=== PATIENT | male | born 1995 | race African-American/Black ===

== ENCOUNTER 2019-03-01 15:42 | Emergency (ER) | payer OTHER ==
[2019-03-01 15:50] VITALS: BP 137/77
--- NOTE | 2019-03-01 17:04 | ED Physician Documentation ---
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 He was wrestling 2 days ago when he was thrown onto his left side while he continued holding onto his wrestling partner, and injured his left clavicle. [facility] and was diagnosed with left clavicle fracture, and was [facility] [place] when he returned home. He is right-hand dominant. He denies any other injuries. He denies numbness or weakness. Review of Systems Constitutional: denies: Fever Throat: denies: Sore throat Cardiac: denies: Chest pain / pressure Respiratory: denies: Dyspnea, Cough GI: denies: Abdominal Pain, Nausea, Vomiting Skin: denies: Rash, Abrasion (s) Musculoskeletal: reports: Extremity pain (Left clavicular region.). denies: Neck pain, Back pain Neurologic: denies: Focal weakness, Numbness, Headache PD PAST MEDICAL HISTORY - Past Medical History Past Medical History: No Respiratory: None Endocrine/Autoimmune: None - Allergies Allergies/Adverse Reactions: Allergies Allergy/AdvReac Type Severity Reaction Status Date / Time No Known Drug Allergies Allergy Verified 03/01/19 15:45 - Social History Does the pt smoke?: No Smoking Status: Never smoker PD ED PE NORMAL - Vitals Vital signs reviewed: Yes (Normal) - General General: Alert and oriented X 3, Well developed/nourished - HEENT HEENT: Atraumatic - Neck Neck: No bony TTP - Cardiac Cardiac: RRR - Respiratory Respiratory: No respiratory distress, Clear bilaterally - Abdomen Abdomen: Soft, Non tender - Back Back: No spinal TTP - Derm Derm: No rash - Extremities Extremities: Other (There is tenting of the skin overlying the midportion of the left clavicle, with associated tenderness to palpation.) - Neuro Neuro: Alert and oriented X 3, No motor deficit, No sensory deficit Results - Rads (name of study) left clavicle Radiology: Prelim report reviewed, EMP read contemporaneously, See rad report (Completely displaced, comminuted midshaft left clavicle fracture.) PD MEDICAL DECISION MAKING - ED course Complexity details: reviewed results, considered differential, d/w patient, d/w webmethods consultant ED course: The patient's presentation is significant for a displaced comminuted midshaft left clavicle fracture, as seen on x-ray. No other injuries are detected. Because of the nature of the fracture I discussed his condition with Dr. Olivo, who is on-call for orthopedic surgery. He advises shoulder immobilization and outpatient follow-up. The patient's shoulder immobilizer was reapplied. I discussed with him the expected course of injury, the importance of orthopedic follow-up, as well as potentially worrisome signs or symptoms that should prompt reevaluation in the emergency department. Departure - Departure Disposition: 01 Home, Self Care Clinical Impression: Closed left clavicular fracture Qualifiers: Encounter type: initial encounter Clavicle location: shaft Fracture alignment: displaced Qualified Code(s): S42.022A - Displaced fracture of shaft of left clavicle, initial encounter for closed fracture Condition: Stable Instructions: ED Fx Clavicle Follow-Up: LENNIE Alston [Provider Group] Comments: Keep the shoulder immobilizer in place except when showering. You can use ibuprofen, up to 800 mg 3 times daily. Follow-up with orthopedic clinic within 1 week if possible. Call to schedule appointment. Return to the emergency department if you develop breakthrough of the bone through the skin, or otherwise worsening symptoms. Discharge Date/Time: 03/01/19 17:34
--- NOTE | 2019-03-01 17:07 | XRAY Report ---
Reason: left clavicle injury Procedure Date: 03/01/2019 Accession Number: [id number] / [id number] Procedure: XR - Clavicle LT CPT Code: FULL RESULT: EXAM: LEFT CLAVICLE RADIOGRAPHY EXAM DATE: 03/01/2019 04:47 PM. CLINICAL HISTORY: Clavicle fracture. Shoulder injury. Pain. COMPARISON: None. TECHNIQUE: 2 views. FINDINGS: Bones: Comminuted displaced midshaft left clavicle fracture with cephalad displacement of the medial fragment approximately 22 mm with perpendicular orientation of the segmental fragment which measures 3.4 cm in length in relation with the medial and distal fragments. There is cephalad angulation of the medial fragment. Joints: The acromioclavicular and sternoclavicular joints are normal. No subluxation. Soft Tissues: Normal. No soft tissue swelling. IMPRESSION: 1. Completely displaced comminuted midshaft left clavicle fracture. RADIA
== END 2019-03-01 17:34 | disposition home or self-care (01) ==
LOC: ED 15:42
DX: S42.022A Displaced fracture of shaft of left clavicle, initial encounter for closed fracture (principal); X50.1XXA Overexertion from prolonged static or awkward postures, initial encounter; Y93.72 Activity, wrestling; Y92.009 Unspecified place in unspecified non-institutional (private) residence as the place of occurrence of the external cause
CPT/HCPCS: 29105; 99283

== ENCOUNTER 2019-03-18 07:38 | Day surgery (SDC) | payer OTHER ==
[2019-03-18] MEDS ORDERED: LACTATED RINGERS 1,000 ML IV ONE ×2 (07:40→10:50)
[2019-03-18] MEDS ORDERED: ceFAZolin 2 GM in SODIUM CHLORIDE 0.9% 100ML 100 ML IV ONE (08:00)
--- NOTE | 2019-03-18 08:07 | ANESTHESIA ---
Pre-Anesthesia VS, & Labs - Diagnosis Left clavicle fracture - Procedure left clavicle orif Vital Signs: Temp Pulse Resp BP Pulse Ox 36.1 C L 65 12 113/75 97 03/18/19 07:41 03/18/19 07:41 03/18/19 07:41 03/18/19 07:41 03/18/19 07:41 Height 6 ft Weight (kg) 66.2 kg Body Mass Index 21.2 - NPO >8 hours Home Medications and Allergies Active Medications Cefazolin Sodium 2 gm/ Sodium (Chloride) 100 mls @ 200 mls/hr IV ONCE ONE Stop: 03/18/19 08:29 Allergies/Adverse Reactions: Allergies Allergy/AdvReac Type Severity Reaction Status Date / Time shellfish derived Allergy Anaphylaxis Verified 03/13/19 13:21 Anes History & Medical History - Anesthetic History Family history of Anesthesia Complications: Denies Family history of Malignant Hyperthermia: Denies - Medical History Cardiovascular: reports: None Pulmonary: reports: None Gastrointestinal: reports: None Urinary: reports: None Neuro: reports: None Musculoskeletal: reports: None, Other Endocrine/Autoimmune: reports: None Blood Disorders: reports: None Skin: reports: None Smoking Status: Current every day smoker (vapes daily) Psychosocial: reports: Alcohol (binge drinks on weekend) Exam General: Alert, Oriented x3, Cooperative, No acute distress Dental: WNL Mouth Openin Fingerbreadth Neck Mobility: Normal Mallampati classification: I Thyromental Distance: 4-6 cm Respiratory: Lungs clear, Normal breath sounds, No respiratory distress, No accessory muscle use Cardiovascular: Regular rate, Normal S1, Normal S2 Mental/Cognitive Status: Alert/Oriented X3, Normal for patient Plan Anesthesia Type: General Consent for Procedure(s) Verified and Reviewed: Yes Code Status: Attempt Resuscitation ASA classification: 2-Mild systemic disease Is this case an emergency?: No
[2019-03-18] MEDS ORDERED: MIDAZOLAM 2 MG/2 ML VIAL ONE (08:20)
[2019-03-18] MEDS ORDERED: fentaNYL 100 MCG/2 ML VIAL ONE (08:21)
--- NOTE | 2019-03-18 08:58 | ANESTHESIA PROCEDURE NOTE ---
Diagnosis: left clavicle fracture Procedure: Left superficial cervical plexus block for postop pain control per surgeon request Consent for Procedure(s) Verified and Reviewed: Yes Height and Weight: Height 6 ft Weight (kg) 66.2 kg Body Mass Index 21.2 Vital Signs: Temp Pulse Resp BP Pulse Ox 36.1 C L 65 12 113/75 97 03/18/19 07:41 03/18/19 07:41 03/18/19 07:41 03/18/19 07:41 03/18/19 07:41 Allergies shellfish derived Allergy (Verified 03/13/19 13:21) Anaphylaxis Requesting Provider: Pallavi Location: Left superficial cervical plexus block ASA classification: 2-Mild systemic disease Is this case an emergency?: No Anes. Monitoring and Equipment: Non-invasive BP, Pulse oximetery, Sterile prep a nd drape Anes. Procedure Start Time: 08:40 Anes. Procedure Stop Time: 08:48 Procedure Notes: Timeout procedure completed and patient was sedated with 100mcg fentanyl and 2mg versed. Left neck was prepped with chloroprep and the superficial cervical plexus was visualized using ultrasound. A 22G blunted stimiplex needle was advanced to the plexus and a total of 10ml of 0.5% ropivicaine plus 4mg decacron was injected into the fascial plane. Adequate spread was noted. Patient tolerated the procedure well and care was returned to the preop RN. Full evaluation is pending.
[2019-03-18] MEDS ORDERED: ACETAMINOPHEN 1,000 MG/100 ML 100 ML IV ONE (10:10)
[2019-03-18] MEDS ORDERED: DEXAMETHASONE 4 MG/ML VIAL IVP ONE (10:10)
[2019-03-18] MEDS ORDERED: KETOROLAC 30 MG/ML VIAL IVP ONE (10:10)
[2019-03-18] MEDS ORDERED: PROPOFOL 200 MG/20 ML VIAL IVP ONE (10:10)
[2019-03-18] MEDS ORDERED: ONDANSETRON 4 MG/2 ML VIAL IVP ONE (10:10)
[2019-03-18] MEDS ORDERED: fentaNYL 100 MCG/2 ML VIAL IVP ONE (10:10)
[2019-03-18] MEDS ORDERED: LIDOCAINE-MPF 2% 5 ML VIAL IM ONE (10:10)
[2019-03-18] MEDS ORDERED: ROPIVACAINE 0.5% PF 20 ML AMPULE EP ONE (10:10)
[2019-03-18] MEDS ORDERED: ONDANSETRON 4 MG/2 ML VIAL IVP PRN (12:11)
[2019-03-18] MEDS ORDERED: oxyCODONE 5 MG TABLET PO PRN (12:11)
--- NOTE | 2019-03-18 12:16 | IMMEDIATE POSTOPERATIVE NOTE ---
Immediate Postoperative Note - Procedure Note Procedure Date: 03/18/19 Pre-Op Diagnosis: Left comminuted diaphyseal clavicle fracture Procedure: Left clavicle ORIF Post-Op Diagnosis: Same Primary Surgeon: Arron RODRIGUEZ MD Anesthesia Type: General ET tube, Regional block Findings: Comminuted midshaft clavicle fracture with significant displacement. Complications: No complications Estimated Blood Loss (in cc): 49 Specimens and Cultures: None Plan of Care: Patient tolerated procedure well instrument and sponge counts correct patient transferred to recovery room in stable condition. Patient will be nonweightbearing left upper extremity with keep dressing clean dry and intact would be in sling but come off her elbow wrist and hand exercises. He would wear sling when he is sleeping or up and about. He would avoid weightbearing left upper extremity as well as left shoulder motion. You to follow-up in 10 to 14 days or sooner on an as-needed basis
[2019-03-18] MEDS ORDERED: HYDROmorphone 0.5 MG/0.5 ML SYRINGE ONE ×2 (12:27→12:40)
[2019-03-18] MEDS: fentaNYL 100 MCG/2 ML VIAL ONE ×2 (12:47→12:55)
[2019-03-18] MEDS ORDERED: oxyCODONE 5 MG TABLET ONE (13:23)
[2019-03-18] MEDS ORDERED: ONDANSETRON 4 MG/2 ML VIAL ONE (13:31)
[2019-03-18 13:57] VITALS: BP 140/80
--- NOTE | 2019-03-18 14:01 | XRAY Report ---
Reason: ORIF LEFT CLAVICLE Procedure Date: 03/18/2019 Accession Number: [id number] / [id number] Procedure: XR - Clavicle LT CPT Code: FULL RESULT: EXAM: LEFT CLAVICLE RADIOGRAPHY EXAM DATE: 03/18/2019 11:59 AM. CLINICAL HISTORY: ORIF left clavicle. COMPARISON: CLAVICLE LT 03/01/2019 4:30 PM. TECHNIQUE: 2 views. FINDINGS: Postoperative fluoroscopic still images demonstrating plate and screw fixation of a clavicle fracture as well as interfragmentary screws in expected alignment with no visualized hardware failure. IMPRESSION: Status post ORIF of clavicle fracture, left side. RADIA
--- NOTE | 2019-03-18 14:02 | XRAY Report ---
Reason: ORIF LEFT CLAVICLE Procedure Date: 03/18/2019 Accession Number: [id number] / [id number] Procedure: FL - OR C-Arm Procedure CPT Code: FULL RESULT: EXAM: FLUOROSCOPIC GUIDANCE EXAM DATE: 03/18/2019 11:57 AM. CLINICAL HISTORY: ORIF left clavicle. COMPARISON: None. FINDINGS: Capture demonstrates plate and screw construct as well as interfragmentary screws securing a comminuted left clavicular fracture. IMPRESSION: Fluoroscopic guidance provided for ORIF of left clavicle. Total fluoroscopy time: 0.05 minutes. Number of images: 1. RADIA
--- NOTE | 2019-03-20 10:06 | OPERATIVE REPORT ---
DATE OF SERVICE: 03/18/2019 Physician: Noé Olivo MD SURGEON: Noé Olivo MD COLLATERAL SPECIALIST: None. ANESTHESIA PROVIDER: Patricia Miller CRNA ANESTHESIA: General endotracheal as well as regional superficial cervical plexus block performed by anesthesia team under ultrasound guidance. ESTIMATED BLOOD LOSS: Less than 50 mL PREOPERATIVE ANTIBIOTICS: Weight-based IV Ancef. COMPRESSION DEVICE: Bilateral calf SCD boots. ORTHOPEDIC IMPLANTS: Acumed 8-hole precontoured left side clavicle plate with associated locking and nonlocking 3 mm screws as well as multiple 2.7 extra plate interfragmentary screws x2. ESTIMATED BLOOD LOSS: 49 mL FLUIDS: 1200 mL lactated Ringer's. INTRAOPERATIVE COMPLICATIONS: None noted. INTRAOPERATIVE FINDINGS: There was a comminuted midshaft clavicle fracture with 2 major fracture fra gments medial and lateral, as well as 2 intervening "butterfly" type fragments. Post-reduction there is near anatomic positioning of the medial and lateral aspects of the clavicle, as well as the anterior superior intervening fragment and adjacent position of the inferior fragment, which is small and not amenable to interfragmentary fixation. HISTORY OF PRESENT ILLNESS AND INDICATIONS: Patient is an active 23-year-old gentleman in the [place] fractured his left clavicle. He had significant prominence and skin prominence of the distal aspe ct of the proximal fragment. There was not an imminent open fracture, though it was impinging upon t he skin. There is no evidence of skin violation though slight skin changes noted in the immediate pr eoperative examination. Patient previously indicated for operative treatment. Please see risks, wilber efits and alternatives were previously reviewed and again highlighted in the preoperative care unit. His questions were answered, he verbalized understanding of the above and verbalized the wish to pro ceed with operative treatment. Informed consent was given. PROCEDURE: On 03/18/2019 patient was identified in the preoperative care unit. He identified his le ft clavicle as the operative site. This is signed. Patient is administered ultrasound-guided region al block by anesthesia team. He was then brought to the operating room. General anesthesia was admi nistered, patient was placed in the beach chair position with head, neck and extremities anatomically comfortable in safe positions to avoid peripheral nerve stretch and compression. Patient's left upp er extremity is draped out and then prepped prescrub with Hibiclens solution and then prepped and arcelia ped in the usual sterile fashion. At this time, surgical pause identified his left clavicle as the o perative site. At this time, incision was made anterior inferior to the anticipated border of the cl avicle by about a centimeter. This incision was made through skin, perpendicular and then with eleva tion of the soft tissues. Dissection is carried out towards the anterior aspect of the clavicle. At this point, the clavicle is identified and soft tissues are elevated off of the superior surface of the clavicle and around the fracture site to identify the major fracture fragments. The soft tissue connections are left when possible, this is noted to be possible for the anterior superior intervenin g fragment, but the posterior inferior fragment is free with no soft tissue connection. The edges of the fracture were cleared of hematoma and periosteum, and then held provisionally reduced with a cla mp and K-wire fixation. C-arm fluoroscopic image shows acceptable position, which was also confirmed with direct visualization. At this point, appropriate plate is selected and then clamped into place at which point it is removed to contour the ends of the plate, a bit to better fit the clavicle, so that they would not be prominent and then this is reclamped into place. At this point, nonlocking sc rews are first placed in the oval holes followed by subsequent locking screws and the remaining holes 4 locking screws with additional nonlocking screws towards the centrally near the fracture fragments . It should be noted that prior to placement of this plate and ultimate K-wiring and reduction that the anterior superior intervening fragment was lagged to the lateral portion of the clavicle using 2 small lag screws under direct visualization with standard lag technique. At this point, after plate fixation, there is noted to be good position of the clavicle with no significant bony prominence. Th e inferior fracture fragment is adjacent to the bone and held there by soft tissue. At this point, t he wound is copiously irrigated and then the muscular fascial plane is repaired using large Vicryl aviles ture, followed by skin closure with 0 Vicryl, 2-0 Vicryl, and interrupted nylon suture. Irrigation a nd hemostasis achieved at every level. Skin is closed without undue tension. Skin is washed and dri ed and silver dressing is applied. This is Bioclusive. Patient was placed in a sling. Patient tolerated the procedure well, is extubated and transferred to the recovery room in stable condition. Will follow standard postoperative left clavicle ORIF protoc ol, but nonweightbearing on the left upper extremity. He will do elbow, wrist, and hand motion hold off on shoulder motion for now. Followup in 10-14 days or sooner on an as-needed basis. Patient had perioperative plans reviewed preoperative medication reviewed. Denies any contraindication to medic ation plan, will use them as directed, will notify us prior to followup if problems or questions sulma velasquez TD: 03/20/2019 07:45
== END 2019-03-18 07:39 | disposition home or self-care (01) ==
LOC: SDS 07:38
PROVIDERS: ATTEND Orthopaedic Surgery Sports Medicine
PROC: 3E0T3BZ Introduction of Anesthetic Agent into Peripheral Nerves and Plexi, Percutaneous Approach (ICD-10-PCS; 2019-03-18)
PROC: 3E0T33Z Introduction of Anti-inflammatory into Peripheral Nerves and Plexi, Percutaneous Approach (ICD-10-PCS; 2019-03-18)
PROC: 0PSB04Z Reposition Left Clavicle with Internal Fixation Device, Open Approach (ICD-10-PCS; principal; 2019-03-18 08:45)
DX: S42.022A Displaced fracture of shaft of left clavicle, initial encounter for closed fracture (principal); F17.210 Nicotine dependence, cigarettes, uncomplicated; F17.290 Nicotine dependence, other tobacco product, uncomplicated
CPT/HCPCS: 23515; 73000; A9270; C1713; J0131; J1170; J7120

== ENCOUNTER 2019-09-20 11:18 | Emergency (ER) | payer OTHER ==
[2019-09-20 11:31] VITALS: BP 134/80
[2019-09-20 12:30] LABS: BILIRUBIN,URINE NEGATIVE (NEGATIVE); GLUCOSE, URINE (UA) NEGATIVE (NEGATIVE); KETONES,URINE (UA) NEGATIVE (NEGATIVE); LEUKOCYTE ESTERASE, URINE NEGATIVE (NEGATIVE); NITRITE,URINE NEGATIVE (NEGATIVE); OCCULT BLOOD,URINE NEGATIVE (NEGATIVE); PROTEIN,URINE NEGATIVE (NEGATIVE); UROBILINOGEN,URINE 0.2 (NORMAL) E.U./dL (NORMAL)
[2019-09-20 12:34] LABS: CLARITY,URINE CLEAR (CLEAR)
--- NOTE | 2019-09-20 12:42 | ED Physician Documentation ---
PD HPI MALE - Stated complaint Stated Complaint: MALE - Chief complaint Chief Complaint: General - History obtained from History obtained from: Patient - History of Present Illness Timing - onset: How many weeks ago (The patient has a consistent girlfriend with whom he is regularly sexually active. He denies multiple partners. He states his girlfriend is and had a routine pelvic exam with a test showing positive for chlamydia. She had not been having any symptoms. He does not have any symptoms. The test results just came back yesterday and the patient was treated in the clinic with single dose of a azithromycin. The patient is here now to be checked for STDs.) Timing - details: Other (He does not have any symptoms.) Associated symptoms: No: Dysuria, Urinary frequency, Discharge, Genital sore / lesion PD HPI MALE CONTRIB FACTORS: Sexually active, Exposed to STD (see above) Similar symptoms before: Has not had sx before Review of Systems Constitutional: denies: Fever, Chills : denies: Dysuria, Frequency, Discharge Skin: denies: Rash PD PAST MEDICAL HISTORY - Past Medical History Cardiovascular: None Respiratory: None Neuro: None Endocrine/Autoimmune: None GI: None : None HEENT: None Psych: None Musculoskeletal: None, Other Derm: None - Present Medications Home Medications: Ambulatory Orders Medication Instructions Recorded Confirmed Azithromycin [Zithromax] 2,000 mg PO ONCE #8 09/20/19 Ondansetron Odt [Zofran] 4 mg TL Q6H PRN #5 tablet 09/20/19 - Allergies Allergies/Adverse Reactions: Allergies Allergy/AdvReac Type Severity Reaction Status Date / Time shellfish derived Allergy Anaphylaxis Verified 09/20/19 11:31 - Social History Does the pt smoke?: No Smoking Status: Current every day smoker (vapes daily) PD ED PE NORMAL - Vitals Vital signs reviewed: Yes - General General: Alert and oriented X 3, No acute distress, Well developed/nourished - Abdomen Abdomen: Soft, Non tender - Male Male : Deferred - Derm Derm: Normal color, Warm and dry - Neuro Neuro: Alert and oriented X 3, No motor deficit, Normal speech Results - Vitals Vitals: Vital Signs - 24 hr 09/20/19 11:29 Heart Rate 64 Respiratory 18 Rate Blood Pressure 134/80 H O2 Saturation 100 Oxygen O2 Source Room air - Labs Labs: Laboratory Tests 09/20/19 12:15 Urine Color YELLOW Urine Clarity CLEAR Urine pH 7.0 Ur Specific [place] 1.010 Urine Protein NEGATIVE Urine Glucose (UA) NEGATIVE Urine Ketones NEGATIVE Urine Occult Blood NEGATIVE Urine Nitrite NEGATIVE Urine Bilirubin NEGATIVE Urine Urobilinogen 0.2 (NORMAL) Ur Leukocyte Esterase NEGATIVE Ur Microscopic Review NOT INDICATED Urine Culture Comments NOT INDICATED PD MEDICAL DECISION MAKING - ED course Complexity details: considered differential (The patient was exposed to chlamydia. Even though his partner is asymptomatic and was found on a routine pelvic exam for , it would still make sense to treat the patient as well. I explained this to him and he is in agreement. We will treat with a single dose azithromycin which he opted for, as opposed to the doxycycline regimen. Prescription is given. I did discuss with him the potential dormancy of the chlamydia so it is hard to know for his girlfriend how long she had the colonization with the chlamydia.), d/w patient Departure - Departure Disposition: 01 Home, Self Care Clinical Impression: Exposure to chlamydia Condition: Stable Record reviewed to determine appropriate education?: Yes Follow-Up: MADDY GAMBLE [Primary Care Provider] - Prescriptions: Azithromycin [Zithromax] 2,000 mg PO ONCE #8 Ondansetron Odt [Zofran] 4 mg TL Q6H PRN #5 tablet PRN Reason: Nausea / Vomiting Comments: Stay well-hydrated. Take the whole dose of the Zithromax at one time as a single dose (or divided half at a time over 8-12 hours) and this should clear any chlamydial bacteria present. Be sure to have a little food or so before hand as it can irritate your stomach quite well. Use ondansetron if needed for nausea.
== END 2019-09-20 13:22 | disposition home or self-care (01) ==
LOC: ED 11:18
DX: Z20.2 Contact with and (suspected) exposure to infections with a predominantly sexual mode of transmission (principal); F17.290 Nicotine dependence, other tobacco product, uncomplicated
CPT/HCPCS: 81001; 81003; 87086; 87491; 87591; 87661; 99283

== ENCOUNTER 2020-08-12 12:27 | Emergency (ER) | payer OTHER ==
--- NOTE | 2020-08-12 12:50 | ED Physician Documentation ---
PD HPI CHEST PAIN - Stated complaint Stated Complaint: CP, DIFFICULTY BREATHING - POSS EXPOSURE - Chief complaint Chief Complaint: Resp - History obtained from History obtained from: Patient - Additional information Additional information: For many years now he has had intermittent sharp chest pain in the low anterior ribs bilaterally that is worse with deep breathing and worse when he raises his arms over his head. It is not associated with shortness of breath, fevers, cough. Of note he was exposed to Covid at work 3 weeks ago but has been asymptomatic and tested negative since. So I do not think that is related. Pain was worse 2 days ago than it had been in the past, milder today but felt like it should be evaluated, it never has been. Review of Systems Constitutional: denies: Fever, Chills Throat: denies: Dental pain / toothache, Oral lesions / sores, Sore throat Cardiac: denies: Palpitations, Pedal edema, Calf pain Respiratory: denies: Dyspnea, Cough, Hemoptysis, Wheezing PD PAST MEDICAL HISTORY - Past Medical History Cardiovascular: None Respiratory: None Neuro: None Endocrine/Autoimmune: None GI: None : None HEENT: None Psych: None Musculoskeletal: None, Other Derm: None - Past Surgical History Past Surgical History: Yes - Present Medications Home Medications: Ambulatory Orders Medication Instructions Recorded Confirmed Azithromycin [Zithromax] 2,000 mg PO ONCE #8 09/20/19 Ondansetron Odt [Zofran] 4 mg TL Q6H PRN #5 tablet 09/20/19 - Allergies Allergies/Adverse Reactions: Allergies Allergy/AdvReac Type Severity Reaction Status Date / Time shellfish derived Allergy Anaphylaxis Verified 08/12/20 12:45 - Social History Does the pt smoke?: No Smoking Status: Current every day smoker (vapes daily) Does the pt drink ETOH?: No Does the pt have substance abuse?: No - Immunizations Immunizations are current?: Yes PD ED PE NORMAL - Vitals Vital signs reviewed: Yes - General General: Alert and oriented X 3, No acute distress - HEENT HEENT: PERRL, EOMI - Neck Neck: Supple, no meningeal sign, No bony TTP - Cardiac Cardiac: RRR, No murmur - Respiratory Respiratory: No respiratory distress, Clear bilaterally - Abdomen Abdomen: Non tender - Back Back: No CVA TTP, No spinal TTP - Derm Derm: Normal color, Warm and dry - Extremities Extremities: No edema, No calf tenderness / cord - Neuro Neuro: Alert and oriented X 3, Normal speech Results - Vitals Vitals: Vital Signs - 24 hr 08/12/20 08/12/20 08/12/20 12:38 13:01 13:32 Temperature 36.9 C Heart Rate 77 64 64 Respiratory 13 23 21 Rate Blood Pressure 147/102 H 134/82 H 122/72 O2 Saturation 100 100 100 08/12/20 13:45 Temperature 36.8 C Heart Rate Respiratory Rate Blood Pressure O2 Saturation Oxygen O2 Source Room air - EKG (time done) 1241 Rate: Rate (enter#) (60) Rhythm: NSR [place]: Normal Intervals: Normal MD Ischemia: ST elevation c/w repol, Non specific changes Computer interpretation: Agree with computer - Labs Labs: Laboratory Tests 08/12/20 08/12/20 08/12/20 13:08 13:08 13:08 WBC 2.0 L* RBC 4.82 Hgb 13.4 L Hct 40.7 L MCV 84.4 MCH 27.8 MCHC 32.9 RDW 13.3 Plt Count 182 MPV 8.9 Neut # (Auto) Not Reportable Lymph # (Auto) Not Reportable [place] # (Auto) Not Reportable Eos # (Auto) Not Reportable Baso # (Auto) Not Reportable Absolute Nucleated RBC Not Reportable Total Counted 100 Band Neuts % (Manual) 2 Abnorm Lymph % (Manual) 0 Nucleated RBC % Not Reportable Neutrophils # (Manual) 0.7 L Lymphocytes # (Manual) 1.1 L Monocytes # (Manual) 0.1 Eosinophils # (Manual) 0.0 Basophils # (Manual) 0.0 Differential Comment MANUAL DIFFERENTIAL Manual Slide Review Indicated WBC Morphology NORMAL APPEARANCE Platelet Estimate NORMAL (130-450,000) Platelet Morphology NORMAL APPEARANCE RBC Morph Micro Appear NORMAL APPEARANCE Sodium 140 Potassium 4.1 Chloride 105 Carbon Dioxide 25 Anion Gap 10.0 BUN 10 Creatinine 1.0 Estimated GFR (MDRD) 111 Glucose 83 Calcium 9.3 Total Bilirubin 1.2 H AST 20 ALT 16 Alkaline Phosphatase 39 L Troponin I High Sens < 2.3 L Total Protein 7.0 Albumin 4.2 Globulin 2.8 Albumin/Globulin Ratio 1.5 Lipase 21 L PD MEDICAL DECISION MAKING - ED course ED course: 24-year-old gentleman with chest pain, subacute and seems musculoskeletal or pleuritic. His exam is normal as is his EKG and x-ray. Heart score 1 for nicotine use. Nothing in the history or physical to suggest PE. From a chest pain perspective the seems to be benign, the leukopenia was noted. I discussed this with the hematology staff over in the lab and she did a smear and said it looked fairly normal but requested a formal pathology smear as well. Discussed this with the patient and needs to follow-up closely with primary care for further evaluation and treatment. Departure - Departure Disposition: Home, Self Care Clinical Impression: Chest pain Qualifiers: Chest pain type: unspecified Qualified Code(s): R07.9 - Chest pain, unspecified Leukopenia Qualifiers: Leukopenia type: unspecified Qualified Code(s): D72.819 - Decreased white blood cell count, unspecified Condition: Good Record reviewed to determine appropriate education?: Yes Instructions: ED Chest Pain NonCardiac Comments: No concerning findings for heart or lung issues were found. We did find though that your total white blood cell count is low at 2. Cause of this is unknown. 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 A pathologist will look at your blood smear, but your flight surgeon will need to order testing on top of that. A copy of your labs is stable to your discharge instructions. Discharge Date/Time: 08/12/20 13:49
--- NOTE | 2020-08-12 13:11 | XRAY Report ---
PROCEDURE: Chest 2 View X-Ray INDICATIONS: Chest pain TECHNIQUE: 2 view(s) of the chest. COMPARISON: None. FINDINGS: Surgical changes and devices: Status post ORIF of left clavicle fracture. Lungs and pleura: No pleural effusions or pneumothorax. Lungs are clear. Mediastinum: Mediastinal contours are normal. Heart size is normal. Bones and chest wall: No suspicious bony abnormalities. Soft tissues appear unremarkable. IMPRESSION: No acute cardiopulmonary disease process. Reviewed by: Julia Scott MD, PhD on 08/12/2020 12:10 PM [place] Approved by: Julia Scott MD, PhD on 08/12/2020 12:10 PM AKDT Station ID: [id number]
[2020-08-12 13:12] LABS: EOSINOPHILS % (AUTO) 1.5 %; HGB - HEMOGLOBIN 13.4 g/dL (14.0-18.0); LYMPHOCYTES % (AUTO) 48.3 %; MEAN CORPUSCULAR HEMOGLOBIN 27.8 pg (27.0-31.0); MEAN CORPUSCULAR HGB CONC 32.9 g/dL (32.0-36.0); MEAN CORPUSCULAR VOLUME 84.4 fL (80.0-94.0); MEAN PLATELET VOLUME 8.9 fL (7.4-11.4); NEUTROPHILS % (AUTO) 39.2 %; PLT - PLATELET COUNT 182 10^3/uL (130-450); RED BLOOD COUNT 4.82 10^6/uL (4.70-6.10); RED CELL DISTRIBUTION WIDTH 13.3 % (12.0-15.0)
[2020-08-12 13:15] LABS: ABNORMAL LYMPHS % (MANUAL) 0 %
[2020-08-12 13:25] LABS: ALBUMIN 4.2 g/dL (3.2-5.5); ALBUMIN/GLOBULIN RATIO 1.5 (1.0-2.2); BILIRUBIN,TOTAL 1.2 mg/dL (0.2-1.0); CALCIUM 9.3 mg/dL (8.5-10.3)
[2020-08-12 13:28] LABS: BAND NEUTROPHILS % (MANUAL) 2 %; LYMPHOCYTES # (MANUAL) 1.1 10^3/uL (1.5-3.5); LYMPHOCYTES % (MANUAL) 56 %; MONOCYTES # (MANUAL) 0.1 10^3/uL (0.0-1.0)
[2020-08-12 13:29] LABS: DIFFERENTIAL COMMENT MANUAL DIFFERENTIAL; PLATELET ESTIMATE, MANUAL NORMAL (130-450,000) (NORMAL); PLATELET MORPHOLOGY NORMAL APPEARANCE (NORMAL); RBC MORPHOLOGY (MULTIPLE) NORMAL APPEARANCE (NORMAL)
[2020-08-12 13:33] VITALS: BP 122/72
== END 2020-08-12 13:49 | disposition home or self-care (01) ==
LOC: ED 12:27
DX: R07.9 Chest pain, unspecified (principal); D72.819 Decreased white blood cell count, unspecified; F17.290 Nicotine dependence, other tobacco product, uncomplicated
CPT/HCPCS: 36415; 71046; 80053; 83690; 84484; 85025; 93005; 99284